=== PATIENT | female | born 1960 | race Two or more races ===

== ENCOUNTER 2021-03-11 09:00 | Emergency (ER) | payer OTHER ==
[~2021-03-11] VITALS: Ht 160 cm; Wt 71.7 kg
[2021-03-11] MEDS ORDERED: SYNTHROID112 MCG PO (09:09)
[2021-03-11] MEDS ORDERED: IVERMECTIN3 MG PO (11:54)
[2021-03-11] MEDS ORDERED: PROAIR RESPICL90 MCG IH (11:54)
[2021-03-11] MEDS ORDERED: TESSALON PERLE100 M1 PO (11:54)
[2021-03-11] MEDS ORDERED: MULTIVITAMINS1 EAC8 PO (11:54)
== END 2021-03-11 12:35 ==
LOC: ER 09:00
DX: R51.9 Headache, unspecified (principal)

== ENCOUNTER 2021-03-11 12:57 | Outpatient (CLI) | payer OTHER ==
[~2021-03-11 12:57] MED LIST: IVERMECTIN3 MG PO; MULTIVITAMINS1 EAC8 PO; PROAIR RESPICL90 MCG IH; SYNTHROID112 MCG PO; TESSALON PERLE100 M1 PO
== END 2021-03-11 14:00 | disposition home or self-care (01) ==
LOC: ASH CLINIC 12:57
PROVIDERS: ATTEND General Practice
DX: Z23 Encounter for immunization (principal); U07.1 COVID-19

== ENCOUNTER 2021-04-17 15:26 | Outpatient (CLI) | payer OTHER | END 2021-04-17 15:37 | disposition home or self-care (01) | LOC: RAD 15:26 | PROVIDERS: ATTEND Chiropractor | DX: M54.2 Cervicalgia (principal); M54.5 Low back pain ==

== ENCOUNTER 2021-06-24 07:36 | Outpatient (CLI) | payer OTHER | END 2021-06-24 07:45 | disposition home or self-care (01) | LOC: SONOGRAMA 07:36 | PROVIDERS: ATTEND Specialist | DX: E03.8 Other specified hypothyroidism (principal) ==

== ENCOUNTER 2023-03-04 14:04 | Outpatient (CLI) | payer OTHER | END 2023-03-04 14:42 | disposition home or self-care (01) | LOC: SONOGRAMA 14:04 | DX: E04.0 Nontoxic diffuse goiter (principal); E88.81 Metabolic syndrome and other insulin resistance; E03.9 Hypothyroidism, unspecified ==

== ENCOUNTER 2023-04-13 10:32 | Outpatient (CLI) | payer OTHER | END 2023-04-13 10:41 | disposition home or self-care (01) | LOC: SONOGRAMA 10:32 | PROVIDERS: ATTEND Specialist | DX: M75.100 Unspecified rotator cuff tear or rupture of unspecified shoulder, not specified as traumatic (principal); M75.102 Unspecified rotator cuff tear or rupture of left shoulder, not specified as traumatic; M47.812 Spondylosis without myelopathy or radiculopathy, cervical region; M43.22 Fusion of spine, cervical region ==

== ENCOUNTER 2024-03-09 07:46 | Outpatient (CLI) | payer OTHER | END 2024-03-09 08:06 | disposition home or self-care (01) | LOC: TOM 07:46 | PROVIDERS: ATTEND Specialist | DX: U07.1 COVID-19 (principal); N13.30 Unspecified hydronephrosis; E03.9 Hypothyroidism, unspecified ==

== ENCOUNTER 2024-04-28 10:09 | Outpatient (CLI) | payer OTHER | END 2024-04-28 10:26 | disposition home or self-care (01) | LOC: RAD 10:09 | PROVIDERS: ATTEND Chiropractor | DX: M99.02 Segmental and somatic dysfunction of thoracic region (principal); M99.03 Segmental and somatic dysfunction of lumbar region ==

== ENCOUNTER 2025-08-11 08:45 | Emergency (ER) | payer OTHER ==
[~2025-08-11] VITALS: Ht 160 cm; Wt 63.5 kg
[2025-08-11] MEDS ORDERED: METHYLPREDNISOLONE SOD SUCC 125 MG VIAL IV ONE (09:30)
[2025-08-11] MEDS ORDERED: BENZONATATE 200 MG CAPSULE PO ONE (09:30)
[2025-08-11] MEDS ORDERED: FAMOTIDINE/PF 20 MG/2 ML VIAL IV PUSH ONE (09:30)
[2025-08-11] MEDS ORDERED: CEFTRIAXONE SODIUM 1,000 MG VIAL IV ONE (09:30)
[2025-08-11] MEDS ORDERED: MONTELUKAST SODIUM 10 MG TABLET PO ONE (09:30)
[2025-08-11] MEDS ORDERED: LEVALBUTEROL HCL 1.25 MG/3 ML SOLUTION IH ONE ×2 (09:30→10:03)
[2025-08-11] MEDS ORDERED: FAMOTIDINE/PF 20 MG/2 ML VIAL ONE (09:46)
[2025-08-11] MEDS ORDERED: METHYLPREDNISOLONE SOD SUCC 125 MG VIAL ONE (09:46)
[2025-08-11] MEDS ORDERED: CEFTRIAXONE SODIUM 1,000 MG VIAL ONE (09:46)
[2025-08-11 09:51] LABS: BASO % 0.3 % (0.1-1.2); EOS # 0.00 (0.04-0.54); EOS % 0.0 % (0.7-7.0); LYMPH # 0.59 (1.18-3.74); LYMPH % 17.5 % (19.3-53.1); MEAN PLATELET VOLUME 10.10 fl (9.4-12.4); MONO # 0.32 (0.24-0.82); MONO % 9.5 % (4.7-12.5); NEUT # 2.44 (1.56-6.13); NEUT % 72.4 % (34.0-71.1); RED CELL DISTRIBUTION WIDTH 11.8 % (11.6-14.4)
[2025-08-11] MEDS ORDERED: ACETAMINOPHEN 500 MG GEL..CAP PO ONE (10:01)
[2025-08-11 10:56] LABS: COVID-19 AG NEGATIVE (NEGATIVE)
[2025-08-11] MEDS ORDERED: PEPCID AC20 MG PO (11:16)
[2025-08-11] MEDS ORDERED: OSEL75CA PO (11:16)
== END 2025-08-11 13:13 | disposition home or self-care (01) ==
LOC: ER 08:46
PROVIDERS: General Practice
DX: J10.1 Influenza due to other identified influenza virus with other respiratory manifestations (principal); R05.8 Other specified cough; E03.8 Other specified hypothyroidism; Z20.822 Contact with and (suspected) exposure to COVID-19